=== PATIENT | female | born 1970 | race Caucasian/White ===

== ENCOUNTER 2024-10-19 17:25 | Inpatient (IN) | payer MEDICAID ==
[2024-10-19 18:20] LABS: #Basophils 0.03 10x3/uL (0.0-0.2); %Basophils 0.5 % (0.0-1.0); %Lymphocytes 32.6 % (21.0-51.0); %Monocytes 4.9 % (0.0-10.0); %Neutrophils 59.6 % (42.0-75.0); Hematocrit 41.8 % (36.0-47.0); Mean Corpuscular HGB CONC 31.1 g/dL (32.0-36.0); Mean Corpuscular Volume 96.3 fL (78.0-98.0); Mean Platelet Volume 9.4 fL (7.4-10.4); Platelet Count 179 10x3/uL (130-400); RBC Distribution Width 13.5 % (11.5-14.5); Red Blood Cell (RBC) Count 4.34 mill/uL (4.20-5.40)
[2024-10-19 18:57] LABS: ALT (SGPT) 14 U/L (Less than 34); AST (SGOT) 16 U/L (11-34); Albumin 3.7 g/dL (3.1-4.5); Alkaline Phosphatase 98 U/L (40-110); Anion Gap 13 mmol/L (10-20); BUN (Urea Nitrogen) 15 mg/dL (9.8-20.1); Bilirubin, Total 0.3 mg/dL (0.3-1.2); Calc. Creatinine Clearance 0 mL/min (70-130); Calcium 8.8 mg/dL (7.8-10.44); Carbon Dioxide 24 mmol/L (22-29); Chloride 108 mmol/L (98-107); Estimated GFR 65; Globulin 3.3 g/dL (2.4-3.5); Glucose 176 mg/dL (70-105); Potassium 3.8 mmol/L (3.5-5.1); Sodium 141 mmol/L (136-145)
[2024-10-19 19:01] LABS: Troponin I Less than 0.010 ng/mL (< 0.028)
[2024-10-19] MEDS ORDERED: Aspirin Chewable 81 MG TAB ONE (19:07)
[2024-10-19 22:00] LABS: Bilirubin Negative (Negative); Blood, Urine Negative (Negative); CAUTI Indications for Culture Dysuria,urgency,freq; Clarity Clear (Clear); Glucose, Urine (Dipstick) Greater than 1000 mg/dL (Negative); Ketone, Urine Negative (Negative); Leukocyte Negative Leu/uL (Negative); Nitrite Negative (Negative); Protein, Urine (Dipstick) 30 mg/dL (Neg-Trace); RBC/HPF 0-3 HPF (0-3); Specific Gravity, Urine 1.036 (1.002-1.036); Squamous Epithelial 0-3 HPF (0-3); Urobilinogen Normal mg/dL (Less than 2); WBC/HPF 0-3 HPF (0-3)
[2024-10-19 22:01] LABS: Bacteria/HPF Rare-Few HPF (None Seen)
[2024-10-19 22:02] LABS: Urine Culture Reflex No No
[2024-10-19 22:56] LABS: Troponin I Less than 0.010 ng/mL (< 0.028)
[2024-10-19] MEDS ORDERED: Glucagon 1 MG/ML KIT IM PRN (23:26)
[2024-10-19] MEDS ORDERED: Insulin Lispro 100 UNIT/ML 10 ML VIAL SC PRN (23:26)
[2024-10-19] MEDS ORDERED: Ondansetron ODT 4 MG TAB PO PRN (23:26)
[2024-10-19] MEDS ORDERED: Acetaminophen 325 MG TAB PO PRN (23:26)
[2024-10-19] MEDS ORDERED: Dextrose 5% in Water 1,000 ML IV PRN (23:26)
[2024-10-19] MEDS ORDERED: Ondansetron PF 4 MG/2 ML Vial IVP PRN (23:26)
[2024-10-19] MEDS ORDERED: Dextrose 50% Abboject 50 ML SYRINGE SLOW IVP PRN (23:26)
[2024-10-19] MEDS ORDERED: Ipratropium/Albuterol 3 ML NEB NEB PRN (23:26)
[2024-10-20 00:26] VITALS: BMI 44.0
[2024-10-20] MEDS ORDERED: Lorazepam 2 MG/ML VIAL SLOW IVP PRN (01:09)
[2024-10-20] MEDS: levETIRAcetam 500 MG TAB PO SCH ×2 (03:11→09:35)
[2024-10-20] MEDS: lamoTRIgine 100 MG TAB PO SCH ×2 (03:12→09:35)
[2024-10-20 04:55] LABS: #Basophils Less than 0.03 10x3/uL (0.0-0.2); %Basophils 0.3 % (0.0-1.0); %Eosinophils 2.1 % (0.0-10.0); %Lymphocytes 33.2 % (21.0-51.0); %Monocytes 6.6 % (0.0-10.0); %Neutrophils 57.5 % (42.0-75.0); Hematocrit 39.7 % (36.0-47.0); Hemoglobin 12.5 g/dL (12.0-16.0); Mean Corpuscular HGB CONC 31.5 g/dL (32.0-36.0); Mean Corpuscular Hemoglobin 30.1 pg (27.0-31.0); Mean Corpuscular Volume 95.7 fL (78.0-98.0); Mean Platelet Volume 9.8 fL (7.4-10.4); Platelet Count 168 10x3/uL (130-400); RBC Distribution Width 13.4 % (11.5-14.5); Red Blood Cell (RBC) Count 4.15 mill/uL (4.20-5.40)
[2024-10-20 05:09] LABS: Troponin I Less than 0.010 ng/mL (< 0.028)
[2024-10-20 05:20] LABS: Anion Gap 12 mmol/L (10-20); BUN (Urea Nitrogen) 19 mg/dL (9.8-20.1); Calc. Creatinine Clearance 113 mL/min (70-130); Calcium 8.8 mg/dL (7.8-10.44); Carbon Dioxide 23 mmol/L (22-29); Chloride 109 mmol/L (98-107); Estimated GFR 67; Glucose 124 mg/dL (70-105); Potassium 3.9 mmol/L (3.5-5.1); Sodium 140 mmol/L (136-145)
[2024-10-20] MEDS: Levothyroxine Sodium 88 MCG TAB PO SCH (06:37)
[2024-10-20] MEDS ORDERED: TOPIRAMATE 100 MG PO SCH (09:00)
[2024-10-20] MEDS: Atorvastatin Calcium 40 MG TAB PO SCH (09:34)
[2024-10-20] MEDS: Apixaban 5 MG TAB PO SCH (09:34)
[2024-10-20] MEDS: Gabapentin 400 MG CAP PO SCH (09:34)
[2024-10-20] MEDS: Empagliflozin 25 MG TAB PO SCH (09:34)
[2024-10-20] MEDS: Escitalopram Oxalate 10 mg Tablet PO SCH (09:35)
[2024-10-20] MEDS: FLU (Fluarix Triv) TS24-25(6MOS UP)/PF 45 MCG/0.5 ML Syringe IM ONE (09:35)
[2024-10-20] MEDS: Insulin Lispro 100 UNIT/ML 10 ML VIAL SC PRN (11:54)
[2024-10-20] MEDS: Montelukast Sodium 10 mg Tablet PO SCH (20:15)
[2024-10-20] MEDS: LevoFLOXacin 500 MG TAB PO SCH (20:45)
[2024-10-21] MEDS: Benzonatate 100 MG CAP PO PRN (01:54)
[2024-10-21] MEDS: traMADol HCl 50 MG TAB PO SCH (04:06)
[2024-10-21 05:03] LABS: #Basophils 0.03 10x3/uL (0.0-0.2); %Basophils 0.5 % (0.0-1.0); %Eosinophils 2.3 % (0.0-10.0); %Lymphocytes 33.2 % (21.0-51.0); %Monocytes 8.5 % (0.0-10.0); %Neutrophils 55.2 % (42.0-75.0); Hematocrit 41.6 % (36.0-47.0); Hemoglobin 13.4 g/dL (12.0-16.0); Mean Corpuscular HGB CONC 32.2 g/dL (32.0-36.0); Mean Corpuscular Hemoglobin 30.1 pg (27.0-31.0); Mean Corpuscular Volume 93.5 fL (78.0-98.0); Mean Platelet Volume 9.4 fL (7.4-10.4); Platelet Count 171 10x3/uL (130-400); RBC Distribution Width 13.3 % (11.5-14.5); Red Blood Cell (RBC) Count 4.45 mill/uL (4.20-5.40)
[2024-10-21 06:05] LABS: Anion Gap 13 mmol/L (10-20); BUN (Urea Nitrogen) 19 mg/dL (9.8-20.1); Calc. Creatinine Clearance 119 mL/min (70-130); Calcium 8.8 mg/dL (7.8-10.44); Carbon Dioxide 22 mmol/L (22-29); Chloride 108 mmol/L (98-107); Estimated GFR 71; Glucose 143 mg/dL (70-105); Potassium 3.6 mmol/L (3.5-5.1); Sodium 139 mmol/L (136-145)
[2024-10-21 08:06] VITALS: TEMP 97.6
[2024-10-21 11:48] VITALS: BP 169/74
[2024-10-21 16:50] LABS: Free T4 (Free Thyroxine) 0.9 ng/dL (0.70-1.48)
== END 2024-10-21 15:20 | disposition home or self-care (01) | DRG 155 ==
LOC: ERS 17:25 → OBS 22:46 → OBSVTOIN 10-20 12:41
PROVIDERS: ADMIT Student in an Organized Health Care Education/Training Program; ATTEND Family Medicine
DX: G47.30 Sleep apnea, unspecified (principal); J96.11 Chronic respiratory failure with hypoxia; E11.9 Type 2 diabetes mellitus without complications; J44.9 Chronic obstructive pulmonary disease, unspecified; E03.9 Hypothyroidism, unspecified; I10 Essential (primary) hypertension; G40.909 Epilepsy, unspecified, not intractable, without status epilepticus; M19.90 Unspecified osteoarthritis, unspecified site; Z85.841 Personal history of malignant neoplasm of brain; Z99.81 Dependence on supplemental oxygen; Z79.890 Hormone replacement therapy; Z79.899 Other long term (current) drug therapy; Z79.01 Long term (current) use of anticoagulants; Z79.84 Long term (current) use of oral hypoglycemic drugs; Z88.8 Allergy status to other drugs, medicaments and biological substances; Z88.1 Allergy status to other antibiotic agents; Z88.0 Allergy status to penicillin
CPT/HCPCS: 36415; 36416; 71045; 80048; 80053; 81001; 83690; 83880; 84439; 84443; 84481; 84484; 85025; 87428; 93005; 93306; G0378; J1815

== ENCOUNTER 2025-05-09 07:23 | Emergency (ER) | payer OTHER ==
[2025-05-09 08:02] LABS: #Basophils Less than 0.03 10x3/uL (0.0-0.2); #Eosinophils 0.12 10x3/uL (0.0-0.7); #Monocytes 0.41 10x3/uL (0.11-0.59); #Neutrophils 3.71 10x3/uL (1.40-6.50); %Basophils 0.3 % (0.0-1.0); %Eosinophils 1.9 % (0.0-10.0); %Lymphocytes 33.6 % (21.0-51.0); %Monocytes 6.4 % (0.0-10.0); %Neutrophils 57.5 % (42.0-75.0); Hematocrit 40.4 % (36.0-47.0); Hemoglobin 12.6 g/dL (12.0-16.0); Mean Corpuscular Hemoglobin 29.4 pg (27.0-31.0); Mean Corpuscular Volume 94.2 fL (78.0-98.0); Platelet Count 165 10x3/uL (130-400); Red Blood Cell (RBC) Count 4.29 mill/uL (4.20-5.40); White Blood Cell (WBC) Count 6.45 10x3/uL (4.8-10.8)
[2025-05-09 08:12] LABS: ALT (SGPT) 15 U/L (Less than 34); AST (SGOT) 20 U/L (11-34); Albumin 3.6 g/dL (3.1-4.5); Alkaline Phosphatase 95 U/L (40-110); Anion Gap 13 mmol/L (10-20); BUN (Urea Nitrogen) 18 mg/dL (9.8-20.1); Bilirubin, Total 0.2 mg/dL (0.3-1.2); Calc. Creatinine Clearance 0 mL/min (70-130); Calcium 9.0 mg/dL (7.8-10.44); Carbon Dioxide 25 mmol/L (22-29); Chloride 108 mmol/L (98-107); Globulin 3.4 g/dL (2.4-3.5); Glucose 166 mg/dL (70-105); Potassium 4.0 mmol/L (3.5-5.1); Sodium 142 mmol/L (136-145)
[2025-05-09] MEDS ORDERED: Ketorolac Tromethamine 30 MG (1 mL) VIAL ONE (08:15)
== END 2025-05-09 10:00 | disposition home or self-care (01) ==
LOC: ERS 07:23
DX: R56.9 Unspecified convulsions (principal); G89.29 Other chronic pain; J44.9 Chronic obstructive pulmonary disease, unspecified; E07.9 Disorder of thyroid, unspecified; I10 Essential (primary) hypertension; E11.40 Type 2 diabetes mellitus with diabetic neuropathy, unspecified; Z79.899 Other long term (current) drug therapy
CPT/HCPCS: 80053; 80177; 85025; 93005; 96374; J1885